=== PATIENT | female | born 1945 | race Caucasian/White ===

== ENCOUNTER 2022-03-03 10:23 | Emergency (ER) | payer OTHER, MEDICARE ==
[2022-03-03] MEDS ORDERED: Diltiazem 50 MG/10 ML SDV IVPUSH ONE ×2 (10:47→11:54)
[2022-03-03 11:16] LABS: CHLORIDE,CL 107 mmol/L (98-107); SODIUM,NA 142 mmol/L (136-145)
[2022-03-03 11:18] LABS: ANION GAP 12.4 mmol/L (5-15); ESTIMATED GFR 52 mL/min (>=60)
== END 2022-03-03 13:55 | disposition short-term general hospital (02) ==
LOC: VM.ED 10:23
DX: I48.91 Unspecified atrial fibrillation (principal); I10 Essential (primary) hypertension; Z79.899 Other long term (current) drug therapy
CPT/HCPCS: 36415; 71046; 80053; 82550; 83615; 84484; 85025; 96374; 96376; 99284; 99285-25; J3490

== ENCOUNTER 2022-07-21 13:33 | Emergency (ER) | payer OTHER, MEDICARE ==
[2022-07-21] MEDS: fentaNYL 50 MCG/ML SDV IVPUSH ONE (14:09)
[2022-07-21] MEDS: Iopamidol 612 MG/ML 100 ML Bottle IVPUSH ONE (16:03)
[2022-07-21] MEDS: Piperacillin/Tazobactam 3.375 GM in Sodium Chloride 0.9% 100 ML IV ONE (16:51)
== END 2022-07-21 18:35 | disposition short-term general hospital (02) ==
LOC: VM.ED 13:33
DX: K81.9 Cholecystitis, unspecified (principal); I10 Essential (primary) hypertension; Z87.891 Personal history of nicotine dependence; Z88.8 Allergy status to other drugs, medicaments and biological substances; Z79.899 Other long term (current) drug therapy
CPT/HCPCS: 36415; 71046; 74019; 74177; 80053; 81001; 82150; 82550; 83615; 83690; 84484; 85025; 93005; 96365; 96375; 99285-25; J2543; J3010; Q9967

== ENCOUNTER 2023-02-09 06:25 | Emergency (ER) | payer OTHER, MEDICARE ==
[2023-02-09] MEDS: Lidocaine 1% 10 ML MDV INJECT ONE (07:05)
[2023-02-09] MEDS ORDERED: Sodium Chloride 0.9% 10 ML Syringe FLUSH PRN (07:49)
[2023-02-09] MEDS: Ondansetron 4 MG/2 ML SDV IVPUSH ONE (08:04)
[2023-02-09] MEDS: HYDROmorphone 0.5 MG/0.5 ML Syringe IVPUSH ONE (08:04)
[2023-02-09] MEDS ORDERED: Tranexamic Acid 1,000 MG/10 ML Vial IV ONE ×2 (08:39→09:30)
[2023-02-09] MEDS ORDERED: Factor IX Complex Human 1,000 UNIT VIAL IV ONE (08:45)
[2023-02-09 08:53] LABS: BASOPHILS PERCENT AUTO 0.2 % (0.2-1.2); EOSINOPHILS ABSOLUTE AUTO 0.1 x10^3/uL (0.0-0.5); EOSINOPHILS PERCENT AUTO 0.7 % (0.0-4.0); HEMATOCRIT 41.3 % (33.0-47.0); HEMOGLOBIN 14.1 g/dL (12.0-16.0); IMMATURE GRAN ABSOLUTE AUTO 0.03 x10^3/uL (0.00-0.07); LYMPHOCYTES ABSOLUTE AUTO 3.6 x10^3/uL (1.0-4.8); MEAN CORPUSCULAR HEMOGLOBIN 31.2 pg (26.0-32.0); MEAN CORPUSCULAR HGB CONC 34.1 g/dL (32.0-36.0); MEAN CORPUSCULAR VOLUME 91.4 fL (78.0-93.0); MONOCYTES PERCENT AUTO 7.3 % (2.0-11.0); NEUTROPHILS ABSOLUTE AUTO 8.7 x10^3/uL (1.8-7.7); NEUTROPHILS PERCENT AUTO 64.6 % (50.0-80.0); PLATELET COUNT,PLT 53 x10^3/uL (130-400); RED BLOOD CELL COUNT 4.52 x10^6/uL (4.00-5.50); WHITE BLOOD CELL COUNT,WBC 13.5 x10^3/uL (4.0-10.0)
[2023-02-09] MEDS: [UNRECOGNIZED DRUG - OTHER] IV ONE ×4 (08:54→09:40)
[2023-02-09] MEDS: FACTOR IX COMPLEX HUMAN 500 UNIT IV ONE ×4 (08:54→09:40)
[2023-02-09] MEDS: HUM PROTHROMBIN CPLX 1000 UNIT IV ONE ×4 (08:54→09:40)
[2023-02-09 09:07] LABS: A/G RATIO 1.29; ALANINE AMINOTRANSFERASE,ALT 63 U/L (14-59); ALBUMIN 3.6 g/dL (3.4-5.0); ALKALINE PHOSPHATASE 79 U/L (46-116); ASPARTATE AMNIOTRANSFERASE,AST 39 U/L (15-37); BILIRUBIN TOTAL 0.9 mg/dL (0.2-1.0); BLOOD UREA NITROGEN,BUN 24 mg/dL (7-18); CALCIUM 8.6 mg/dL (8.5-10.1); CARBON DIOXIDE,CO2 28 mmol/L (21-32); CHLORIDE,CL 107 mmol/L (98-107); CREATININE 0.8 mg/dL (0.55-1.02); EST CRCL DRUG DOSING (CG) 62.52 mL/min; GLUCOSE RANDOM 144 mg/dL (70-99); POTASSIUM,K 4.1 mmol/L (3.5-5.1); PROTEIN TOTAL,TP 6.4 g/dL (6.4-8.2); SODIUM,NA 143 mmol/L (136-145)
[2023-02-09] MEDS: Tranexamic Acid 1,000 MG/10 ML Vial IV ONE (09:08)
[2023-02-09 09:14] LABS: ANION GAP 12.1 mmol/L (5-15); ESTIMATED GFR 76 mL/min (>=60)
[2023-02-09] MEDS: levETIRAcetam in NaCl (iso-os) 500 MG in Premix Bag 1 BAG IV ONE ×2 (09:15)
[2023-02-09 09:21] LABS: ETHANOL BLOOD MEDICAL < 3 mg/dL (0-3)
[2023-02-09] MEDS: fentaNYL 50 MCG/ML SDV IVPUSH ONE (09:29)
[2023-02-09 10:24] VITALS: BP 141/81; PULSE 72
== END 2023-02-09 09:31 | disposition short-term general hospital (02) ==
LOC: VM.ED 06:25
DX: S62.346A Nondisplaced fracture of base of fifth metacarpal bone, right hand, initial encounter for closed fracture (principal); S01.511A Laceration without foreign body of lip, initial encounter; I10 Essential (primary) hypertension; W18.30XA Fall on same level, unspecified, initial encounter; Y93.01 Activity, walking, marching and hiking; Z88.8 Allergy status to other drugs, medicaments and biological substances; Z79.899 Other long term (current) drug therapy
CPT/HCPCS: 12011; 29125; 70450; 70486; 73130-RT; 80053; 80307; 85025; 96365; 96367; 96375; 99283; 99285-25; J1170; J1953; J2405; J3010; J3490; J7168